=== PATIENT | male | born 1960 | race Caucasian/White ===

== ENCOUNTER 2016-11-12 15:41 | Outpatient (CLI) | payer OTHER ==
--- NOTE | 2016-11-12 17:25 | DIAGNOSTIC IMAGING REPORT ---
PROCEDURE: US SOFT TISSUE THYR/NECK/HEAD INDICATION: LYMPH NODE ENLARGEMENT TECHNIQUE: Guzman scale and color Doppler sonographic images of the thyroid gland were obtained. COMPARISON: None. FINDINGS: There is a 1.1 x 1.1 x 0.7 cm left supraclavicular subcutaneous echogenic mass which is not well marginated, suggestive of a lipoma. This does not exhibit a hypoechoic rim of a lymph node. IMPRESSION: 1. Left supraclavicular subcutaneous echogenic mass suggestive of a lipoma. Lymph node is less likely. Recommend clinical follow-up.
== END 2016-11-12 23:00 ==
LOC: US SRH 15:41
DX: R22.1 Localized swelling, mass and lump, neck (principal)

== ENCOUNTER 2016-12-21 10:51 | Outpatient (CLI) | payer OTHER ==
[2016-12-21] MEDS ORDERED: VITAMIN C500 M1 PO (17:19)
[2016-12-21] MEDS ORDERED: MULTIPLE VITAMIN PO (17:19)
[2016-12-21] MEDS ORDERED: ZESTRIL5 MG PO (17:20)
--- NOTE | 2016-12-21 17:21 | DIAGNOSTIC IMAGING REPORT ---
PROCEDURE: XR BARIUM SWALLOW INDICATION: Heartburn and reflux symptoms (refractory medication). TECHNIQUE: Double contrast study. Fluoroscopy time, 2.3 minutes; 1517.97 mGy. 50 fluoroscopic images (including cine fluoroscopy of the esophagus). COMPARISON: None. FINDINGS: Moderate to severe spontaneous gastroesophageal reflux with mild tertiary contractions of the esophagus. Mild thickening of the distal esophageal folds suggests reflux esophagitis. IMPRESSION: 1. Moderate to severe spontaneous gastroesophageal reflux. 2. Associated mild tertiary contractions (esophageal spasm). 3. Mild thickening of the esophageal folds suggests reflux esophagitis. 4. Findings discussed with the patient.
[2016-12-21] MEDS ORDERED: PANTOPRAZOLE SO40 MG PO (17:24)
[2016-12-21] MEDS ORDERED: GLUCOSAMINE1500 CO1 PO (17:24)
== END 2016-12-21 23:00 ==
LOC: XR SRH 10:51
DX: K21.9 Gastro-esophageal reflux disease without esophagitis (principal); K22.4 Dyskinesia of esophagus